=== PATIENT | female | born 1980 | race Caucasian/White ===

== ENCOUNTER 2017-06-19 13:09 | Emergency (ER) | payer MEDICARE, MEDICAID, SELFPAY ==
[2017-06-19 13:10] VITALS: BP 164/103; PULSE 84; RESP 20; TEMP 36.8; O2SAT 100; BMI 53.0
--- NOTE | 2017-06-19 14:07 | RAD_ITS ---
STUDY: X-RAY CHEST REASON FOR EXAM: Female, 36 years old. Chest pain TECHNIQUE: Single AP portable view of the chest. COMPARISON: None. FINDINGS: The lungs are clear and expanded. Partial elevation of the right hemidiaphragm. There is no demonstrated pleural abnormality. There is borderline cardiomegaly. Normal mediastinum and nikolai. Normal visualized pulmonary arteries. Normal visualized aortic arch and descending thoracic aorta. Normal visualized thoracic spine. Normal visualized ribs, clavicles, and shoulders. There is no demonstrated abnormality of the visualized soft tissue structures of the upper abdomen. RAD/Chest 1 View (Portable) IMPRESSION: No acute cardiopulmonary disease. Electronically Signed: Rogelio Vora MD at 14:29 EDT , Service support ,
--- NOTE | 2017-06-19 14:07 | EKG12_ITS ---
Test Reason : WEAKNESS Blood Pressure : / mmHG Vent. Rate : 075 BPM Atrial Rate : 075 BPM P-R Int : 154 ms QRS Dur : 092 ms QT Int : 396 ms P-R-T Axes : 012 019 000 degrees QTc Int : 442 ms Normal sinus rhythm Normal ECG Confirmed by MISA MASSEY MD ([id number]), map editor SHARIF ELIZALDE ([id number]) on 06/21/2017 1:28:22 PM Referred By: RALPH Confirmed By:MISA MASSEY MD
[2017-06-19 14:26] VITALS: O2SAT 99
[2017-06-19] MEDS: 0.9% Normal Saline 1,000 ML 150 ML IV (14:26)
[2017-06-19 14:34] LABS: Absolute Lymphocyte Count 1.31 X10^3/ul (0.83-4.51); Absolute Neutrophil Count 4.3 X10^3/uL (2.0-7.7); Basophil# 0.04 X10^3/uL; Basophil% 0.6 % (0-1); Eosinophils% 1.6 % (0-5); Hematocrit 39.1 % (37-47); Hemoglobin 13.1 g/dl (12.0-15.0); Lymphocyte # 1.31 X10^3/ul (4.0); Lymphocyte % 20.9 % (19-41); Mean Corp Hgb Conc 33.5 g/gl (32-36); Mean Corpuscular Hgb 26.7 pg (27.0-32.0); Mean Corpuscular Volume 79.6 fL (81-99); Mean Platelet Vol. 9.8 fl (6.2-12.0); Monocyte# 0.46 X10^3/uL; Monocyte% 7.3 % (0-10); Neutrophil # 4.33 X10^3/uL (2.7-7.7); Neutrophil % 69.3 % (47-70); Platelet Count 387 K/mm3 (150-450); RBC Distribution Width CV 14.3 % (11.6-14.6); RBC Distribution Width SD 40.7 fl (35.1-43.9); Red Blood Count 4.91 M/mm3 (4.2-5.4); White Blood Count 6.3 K/mm3 (4.4-11.0)
--- NOTE | 2017-06-19 14:34 | ED.VISSUMM ---
- ER Visit Summary Date of Service: 06/19/17 Chief Complaint: [] Anxious nervous and shaky well at [facility] History of Present Illness: The patient is a 36 F [] she reports she has a history of she believes schizoaffective disorder was discharged about a month ago from [facility] she is currently living in the [facility] mother today she felt anxious and nervous and felt as if she was shaking all over and her heart was racing she was brought in by EMS she is currently on her menstrual period she had normal vital signs per EMS she states her shaking sensation i completely resolved. She has no history of NM PE DVT arrhythmia or palpitations or thyroid disease. She denies being as again she is currently on her menstrual cycle she is taking her psychiatric medications, there is no homicidal suicidal ideation Physical Examination: [] On exam she is resting cupping the bed her vital signs are normal there is no psychomotor agitation head neck unremarkable lungs are clear heart tones are normal abdomen soft nontender upper lower extremities normal she is awake and alert conversant cooperative cognitively intact answering questions appropriately with no complaints she has no shaking no sense of anxiety no suicidal ideation she is back to her baseline Test Results: [] Emergency Department Course and Treatment: [] The etiology of the sense of shaking and palpitations is unclear her vital signs are normal and there were normal with paramedics when they picked her up at this time her EKG shows a sinus rhythm her screening labs are unremarkable she is remained astigmatic in the emergency department, I have asked her to follow with her family doctors and psychiatry doctors return for change in symptoms she agrees Treatment Plan: [] Disposition: [] Home stable Impression: [] Sense of shaking anxiety palpitations This note was generated with Layeration software. It may contain incorrect words, spelling, and punctuation that were not noted in review of the chart prior to signing ED Disposition - Plan for ED Patient: Chief Complaint: Weakness
[2017-06-19 14:37] LABS: POSITIVE COUNT NO; POSITIVE DIFFERENTIAL NO; POSITIVE MORPHOLOGY NO
--- NOTE | 2017-06-19 14:39 | ED.DEP ---
ED Disposition - Plan for ED Patient: Chief Complaint: Weakness Instructions: ED Palpitations Referrals: Travon Lopez DO [NON CLINICAL AFFILIATE] -
[2017-06-19 15:25] LABS: Anion Gap 7 (5-15); BUN 11 mg/dL (7-18); BUN/Creat Ratio 17.6 RATIO (10-20); Calcium,Total 8.4 mg/dL (8.5-10.1); Chloride 110 mmol/L (98-107); Creatinine, Serum 0.62 mg/dL (0.55-1.02); EST Glomerular Filtration Rate 115 mL/min (>60); Est Glom Filt Rate - Afr Amer 139 mL/min (>60); Estimated Creatinine Clearance 100.17 ml/min; Glucose 100 mg/dL (74-106); Potassium 3.9 mmol/L (3.5-5.1); Sodium Level 141 mmol/L (136-145)
[2017-06-19 15:49] VITALS: BP 160/74; PULSE 80; RESP 18; O2SAT 98
== END 2017-06-19 15:50 | disposition home or self-care (01) ==
PROVIDERS: Emergency Provider Emergency Medicine
DX: F41.9 Anxiety disorder, unspecified (principal); R00.2 Palpitations; Z79.899 Other long term (current) drug therapy
CPT/HCPCS: 71045; 80048; 84484; 85025; 93005; 96360; 99285; J7030